=== PATIENT | female | born 1970 | race Caucasian/White ===

== ENCOUNTER 2020-11-22 07:27 | Outpatient (CLI) | payer BC, SELFPAY ==
--- NOTE | ~2020-11-22 | CT_ITS ---
EXAMINATION: CT abdomen pelvis w con DATE: 11/22/2020 07:52 INDICATION: Left lower quadrant abdominal pain. TECHNIQUE: Computed tomography (CT) of the abdomen and pelvis was performed with 100 mL Omnipaque 350 intravenous contrast. Automated exposure control and iterative reconstruction technique were employe d. The dose-length product was 971.27 mGy-cm. COMPARISON: None. FINDINGS: The visualized portions of the lung bases demonstrate mild atelectasis. No pleural effusion . The heart size is normal. No pericardial effusion. There is a 2.0 cm mass in segment VIII of the li roro. There are changes of cholecystectomy. The pancreas, spleen, adrenal glands, and kidneys are norm al. There are no dilated loops of bowel. The appendix is normal. There are no pathologically enlarged lymph nodes. There is no free intraperitoneal fluid. There is severe lumbar spondylosis. IMPRESSION: 1. 2.0 cm liver mass, which may be benign or less likely malignant. Abdomen MRI without and with cont rast is recommended. Reviewed, dictated and finalized at location B. IMPRESSION: 1. 2.0 cm liver mass, which may be benign or less likely malignant. Abdomen MRI without and with contrast is recommended.
== END 2020-11-22 07:28 | disposition home or self-care (01) ==
PROVIDERS: PCP Family Medicine; Visit Provider Nurse Practitioner Family
DX: R10.32 Left lower quadrant pain (principal); K76.9 Liver disease, unspecified
CPT/HCPCS: 74177; Q9967

== ENCOUNTER 2020-12-14 06:38 | Outpatient (CLI) | payer BC, SELFPAY ==
--- NOTE | ~2020-12-14 | MR_ITS ---
EXAMINATION: MR abdomen wo/w con DATE: 12/14/2020 08:09 INDICATION: Hepatomegaly. 2 cm hepatic mass seen in segment [address] . TECHNIQUE: Magnetic resonance imaging (MRI) of the abdomen was performed without and with 18 mL Multi lyn intravenous contrast. Sequences included coronal T2-weighted SS-FSE, coronal and axial FS 2D-F IESTA, axial STIR FSE, axial T2-weighted SS-FSE, axial T2-weighted FS SS-FSE, axial diffusion-weighte d SE, axial dual-echo T1-weighted FSPGR, and axial and coronal T1-weighted LAVA. Postcontrast axial T 1-weighted LAVA images were obtained in a time course. Postcontrast coronal T1-weighted LAVA images w ere obtained. COMPARISON: CT abdomen and pelvis dated 11/22/2020 FINDINGS: Mild dependent atelectasis in the bilateral lower lobes. Heart size is normal. No pericardial or pleu ral effusion. Liver appears normal in size and measures 16.5 cm in craniocaudal length. 1.9 cm galen ioma at the dome of the liver in segment 8 with typical enhancement pattern of peripheral puddling of contrast which fills in on delayed images. Small peripheral wedge-shaped region of transient hepatic intensity difference in segment 7 of the liver. Susceptibility artifact associated with cholecystect akua clips at the gallbladder fossa. Spleen, pancreas, bilateral adrenal glands and kidneys are normal . Visualized portions of the bowels are unremarkable. No pathologically enlarged abdominal lymphadeno manjit. Bones are also unremarkable with normal marrow signal throughout. IMPRESSION: 1. 1.9 cm hepatic hemangioma segment 8 of the liver corresponding to the lesion of concern on prior C T. Otherwise normal liver which appears normal in size measuring 16.5 cm maximal craniocaudal length. Reviewed, dictated and finalized at location A. IMPRESSION: 1. 1.9 cm hepatic hemangioma segment 8 of the liver corresponding to the lesion of concern on prior CT. Otherwise normal liver which appears normal in size me asuring 16.5 cm maximal craniocaudal length.
[2020-12-14 07:20] LABS: Estimated Glomerular Filt Rate 52
== END 2020-12-14 06:39 | disposition home or self-care (01) ==
LOC: ANHIMG 06:46
PROVIDERS: PCP Family Medicine; Visit Provider Nurse Practitioner Family
DX: R16.0 Hepatomegaly, not elsewhere classified (principal)
CPT/HCPCS: 74183; A9577

== ENCOUNTER → 2020-12-16 01:33 | Outpatient (CLI) | payer BC, SELFPAY ==
[2020-12-16 19:37] LABS: SARS-CoV-2 RNA PCR Negative
== END ==
PROVIDERS: PCP Family Medicine; Visit Provider Internal Medicine Gastroenterology
DX: Z01.812 Encounter for preprocedural laboratory examination (principal); Z20.822 Contact with and (suspected) exposure to COVID-19
CPT/HCPCS: C9803; U0003; U0005

== ENCOUNTER 2020-12-19 01:50 | Day surgery (SDC) | payer BC, SELFPAY ==
[2020-12-07 12:21] VITALS: BMI 31.4
[2020-12-19 10:03] VITALS: BP 121/70; PULSE 62; RESP 16; TEMP 36.4; O2SAT 100; BMI 34.7
[2020-12-19] MEDS: LACTATED RINGERS 1,000 ML 150 ML IV CONT (10:21)
--- NOTE | 2020-12-19 10:21 | WPDGICN ---
Assessment and Plan Assessment and plan (1) Throat pain: Code(s): R07.0 - Pain in throat Status: Acute Assessment and Plan: Patient has 6 months of a burning throat pain. Not related to diet. Plan Is for an EGD. Liquid antacid such as Mylanta is advised. If EGD is unremarkable suggest ENT and or pulmonary consult. GI Consult Note Consult date/time: 12/19/20 10:21 HPI: Jolly Barrera is a 50 year old female Presents for EGD. Patient reports a 6 month history of low throat burning. She states that is not related to diet. She has tried proton pump inhibitors without relief of symptoms. She denies any difficulty swallowing. She states on occasionally will notice after a deep breath. Patient underwent an EGD in 2019 that was unremarkable. Per she presents today for follow-up EGD. Her family history is noncontributory. Patient denies any bleeding. She denies any weight loss. Review of Systems Review of Systems: All systems reviewed & are unremarkable except as noted in HPI and below PMFSH Past Medical History Medical History Allergies Diarrhea Esophageal pain GERD (gastroesophageal reflux disease) IBS (irritable bowel syndrome) Left lower quadrant pain Social History Social History (Updated 11/15/20 @ 14:36 by Padmini Callahan CMA) Smoking status: Never smoker Alcohol intake: never Substance use: never Substance use type: does not use Living arrangements: with family Spiritual care concerns: No Meds Home Medications and Allergies Home Medications Medication Instructions Recorded Confirmed Type erenumab-aooe 70 mg/mL 70 mg SUBCUT MONTHLY 10/19/20 12/19/20 History subcutaneous auto-injector mirabegron 25 mg tablet,extended 25 mg PO DAILY 10/19/20 12/07/20 History release 24 hr sertraline 50 mg tablet 50 mg PO DAILY 10/19/20 12/07/20 History topiramate 50 mg tablet 50 mg PO BID 10/19/20 12/07/20 History trazodone 50 mg tablet 50 mg PO TID 10/19/20 12/07/20 History baclofen 5 mg PO BID 12/07/20 12/07/20 History Allergies Allergy/AdvReac Type Severity Reaction Status Date / Time metoclopramide Allergy Intermediate Rash Verified 12/19/20 10:02 minocycline Allergy Intermediate Rash Verified 12/19/20 10:02 penicillin G Allergy Intermediate Rash Verified 12/19/20 10:02 Vital Signs Vital Signs - 24 hr 12/19/20 10:03 Temperature 97.5 F L Pulse Rate 62 Respiratory Rate 16 Blood Pressure 121/70 Pulse Oximetry 100 Exam Narrative: Exam Narrative: Physical exam reveals patient be alert. Vital signs stable. HEENT exam is unremarkable. Lungs are clear to auscultation and percussion. Heart is without murmur or extra sounds. Abdominal exam bowel sounds present soft nontender with no organomegaly.
[2020-12-19 11:07] VITALS: BP 93/56; PULSE 65; RESP 12; O2SAT 94
[2020-12-19 11:17] VITALS: BP 123/84; PULSE 62; RESP 16; O2SAT 100
[2020-12-19 11:27] VITALS: BP 128/64; PULSE 67; RESP 20; O2SAT 100
--- NOTE | 2020-12-28 13:57 | WPDANESEPPF ---
Anes - Initial Pre Proc Eval Procedure: Operation Date: 12/19/20 11:00 Proposed Procedures p Esophagogastroduodenoscopy - Chicoh Ty MD Date/Time: 12/28/20 13:57 Surgeon: Chicho Ty MD Pre Op Diagnosis: epigastric pain Patient Data Age: 50 Gender: F Height: 5 ft 7 in Weight: 100.6 kg Last Vital Signs Temp 97.5 F L 12/19/20 10:03 Pulse 67 12/19/20 11:27 Resp 20 12/19/20 11:27 BP 128/64 12/19/20 11:27 Pulse Ox 100 12/19/20 11:27 Allergies Allergy/AdvReac Type Severity Reaction Status Date / Time metoclopramide Allergy Intermediate Rash Verified 12/19/20 10:02 minocycline Allergy Intermediate Rash Verified 12/19/20 10:02 penicillin G Allergy Intermediate Rash Verified 12/19/20 10:02 Home Medications Medication Instructions Recorded Confirmed Type erenumab-aooe 70 mg/mL 70 mg SUBCUT MONTHLY 10/19/20 12/19/20 History subcutaneous auto-injector mirabegron 25 mg tablet,extended 25 mg PO DAILY 10/19/20 12/07/20 History release 24 hr sertraline 50 mg tablet 50 mg PO DAILY 10/19/20 12/07/20 History topiramate 50 mg tablet 50 mg PO BID 10/19/20 12/07/20 History trazodone 50 mg tablet 50 mg PO TID 10/19/20 12/07/20 History baclofen 5 mg PO BID 12/07/20 12/07/20 History Patient hx anesthesia problems: none Family hx anesthesia problems: none [facility] Past Medical History Medical History Allergies Diarrhea Esophageal pain GERD (gastroesophageal reflux disease) IBS (irritable bowel syndrome) Left lower quadrant pain Social History Social History (Updated 11/15/20 @ 14:36 by Padmini Callahan CMA) Smoking status: Never smoker Alcohol intake: never Substance use: never Substance use type: does not use Living arrangements: with family Spiritual care concerns: No Anes - Eval Final PreProcedure Day of Procedure 12/28/20 13:57 Patient weight: overweight Heart: regular rate and rhythm Lungs: clear to auscultation Airway: Mallampati scale class II Neurological: alert and oriented Last oral intake: >/= 8 hours ASA classification: II Emergent: no Anesthetic plan: proceed Anesthesia type and monitoring: general GIVS and standard monitoring Informed Consent: The patient's anesthetic plan and its attendant risks and benefits were discussed with the patient/family/POA. Questions were solicited and answers provided to the satisfaction of the patient/family/POA.
== END 2020-12-19 11:45 | disposition home or self-care (01) ==
PROVIDERS: PCP Family Medicine; Visit Provider Internal Medicine Gastroenterology
PROC: 0DJ08ZZ Inspection of Upper Intestinal Tract, Via Natural or Artificial Opening Endoscopic (ICD-10-PCS; CPT 43235; principal; 2020-12-19 11:00)
DX: K22.10 Ulcer of esophagus without bleeding (principal); K58.9 Irritable bowel syndrome, unspecified; K21.9 Gastro-esophageal reflux disease without esophagitis
CPT/HCPCS: 43239; 87081; J2704; J7120